=== PATIENT | male | born 1980 | race American Indian/Alaskan Native ===

== ENCOUNTER 2016-09-01 00:14 | Emergency (ER) | payer MEDICARE ==
[2016-09-01] MEDS ORDERED: TYLENOL #3 PO ONE (03:27)
--- NOTE | 2016-09-01 04:01 | Emergency Department Report ---
Head Injury w/o Laceration - HPI Chief Complaint: Fall Stated Complaint: FALL Time Seen by Provider: 09/01/16 03:29 Occurred When: Today Mechanism: Fall Location: Frontal Severity: mild (pain is 2 out of 10) Head Inj w/o Lac: Yes Headache (2/10 to frontal skull), Yes Swelling (frontal skull right), Yes Bruising (abrasion to frontal skull right and left), Yes Break in Skin (abrasions), No Loss of Consciousness, No Nausea, No Blurred Vision, No Altered Mental Status, No Focal Deficit, No Bleeding Other History: Patient reported that he tripped and slipped outside and fell and hit his forehead. Patient arrived by ambulance. He denies all call use. He said he had cuts to his forehead. Reports headache with Dilaudid 10 and abrasion sites. Denies any nausea or vomiting. Denies any loss of consciousness. Denies any fever or chills. Patient said the fall was accidental. Denies any loss of vision ED General PMH - Past Medical History General Medical History: no medical history Surgical History: no surgical history - Family History Significant Family History: no pertinent family hx - Social History Smoking Status: Current Every Day Smoker Alcohol Use: occasionally Drug Use: N (she brought to the hospital by EMS) ED Neuro ROS - Review of Systems Constitutional: no symptoms reported Eyes (ROS): no symptoms reported Ears, Nose, Mouth, Throat: no symptoms reported Respiratory: no symptoms reported Cardiology: no symptoms reported Gastrointestinal/Abdominal: no symptoms reported Genitourinary: no symptoms reported Musculoskeletal: no symptoms reported Skin: other (abrasions to forehead) Neurological: headache Endocrine: no symptoms reported Hematologic/Lymphatic: no symptoms reported All Other Systems: Reviewed and Negative Head Injury W/O Lac Exam - Exam General: Vital signs noted. No distress. Alert and acting appropriately. This is a 36-year-old male awake and alert and in no acute distress. Adult Head Front + Back: 1 - Abrasion 2 - Abrasion 3 - Abrasion Head: Yes Pupils are PERRL, Yes Abrasion (abrasions noted to frontal skull), No Hemotympanum, No Hematoma/Ecchymosis, No Epistaxis, No Stepoff/Deformity, No Laceration Chest, Abd, & Ext: Yes Clear Lung Sounds (to auscultation bilaterally, no rhonchi wheezes or rales normal work of breathing.), Yes Regular Heart Rhythm ( S1 and S2, regular rate and rhythm. Negative murmur), No Neck Pain (neck is supple, no C-spine tenderness. Full range of motion), No Chest Injury/Pain (no chest pain and no chest wall tenderness or deformity.), No Heart Murmur, No Abdominal Tenderness (off, nontender to palpate. Normal bowel sounds in all quadrants), No Back Tenderness (full range of motion, normal inspection, no vertebral or paraspinal tenderness), No Extremity Injury (no clubbing cyanosis or edema, +2 pulses in all extremities. Capillary refill is less than 3 seconds. Patient with good color, movement, sensation, temperature to all extremities. Full Range of Motion to all extremities. No neurovascular compromise.) Neuroligical (Head Inj W/O Lac: Yes Normal Speech, Yes Normal Gait, No Lethargy , No Disorientation, No Focal Numbness, No Focal Weakness Exam: Neurological: GCS of 15, speech is clear and fluid, no facial droop. Alert and oriented 3. Negative Romberg, normal gait. Negative pronator drift. No motor or sensory deficit. Head: Contusion noted to right forehead with multiple abrasion. No open fracture noted. Tender to palpate to forehead. Skin: Abrasions noted to forehead. ED Disposition Clinical Impression: Fall from ground level Nondisplaced right frontal skull fracture Qualifiers: Encounter type: initial encounter Fracture type: closed Qualified Code(s): S02.0XXA - Fracture of vault of skull, initial encounter for closed fracture Fracture of frontal sinus Qualifiers: Encounter type: initial encounter Fracture type: closed Qualified Code(s): S02.19XA - Other fracture of base of skull, initial encounter for closed fracture Closed head injury without loss of consciousness Qualifiers: Encounter type: initial encounter Qualified Code(s): S09.90XA - Unspecified injury of head, initial encounter Abrasion of forehead Qualifiers: Encounter type: initial encounter Qualified Code(s): S00.81XA - Abrasion of other part of head, initial encounter Post-traumatic headache Qualifiers: Headache chronicity pattern: acute headache Intractability: not intractable Qualified Code(s): G44.319 - Acute post-traumatic headache, not intractable Disposition: DC-01 TO HOME OR SELFCARE Is pt being admited?: No Does the pt Need Aspirin: No Condition: Stable ED Medical Decision Making - Lab Data Lab Results 09/01/16 Range/Units 04:15 Plasma/Serum Alcohol < 0.01 (0-0.07) gm% - Radiology Data Radiology results: report reviewed CT scan of the head revealed right paramedian the frontal skull fracture with right frontal scalp swelling.. Skull and scalp: There is a frontal scalp swelling. There is a nondisplaced fracture of the right side of the frontal bone and the right side of the frontal sinus. There is no depressed skull fracture. Ventricles and subarachnoid spaces is normal. Cerebellum and brain stem has no evidence of hemorrhage or acute infarction or mass. Cerebrum no evidence of hemorrhage, acute infarction or mass. Vasculature is normal CTscan of the cervical spine shows no acute fracture or subluxation - Medical Decision Making ED course: Brought to the emergency room by EMS after tripping and falling outdoors. Patient said that he tripped and fell and hit his head and he has bruising to his head and slight headache. Patient was given Tylenol in emergency room and CT scan of the head was done. This showed that patient had fracture to his frontal bone on the right side which is nondisplaced and right paraspinal frontals sinus fracture. This was discussed with patient and I told him that he will need to be transferred to [facility] to be evaluated and treated. I spoke with transfer center after speaking with Dr. Tovar and Dr Douglas and Dr. Gallardo [facility] accepted patient. Diagnostic and labs: Blood alcohol normal level CT scan of the head without contrast revealed nondisplaced fracture through the right side of the frontal bone and the right side of the frontal sinus. There is no depressed skull fracture. No intracranial hemorrhage or mass noted. No infarct noted. Review of previous visits. No previous visits to this hospital. Nexus criteria did not require any images of the neck but because patient has fall with headache CT scan of the head ordered and pending. Patient does not have any tenderness to palpate that is C-spine. Assessment: Frontal skull fracture, closed ,right frontal sinus fracture, posttraumatic headache, accidental fall, abrasion frontals skull Plan follow-up: Patient was given Ancef 1 g in emergency room emperically. Abrasions cleansed with normal saline and triple antibiotic ointment placed inside. Tetanus shot updated. She given Boostrix 0.5 mL IM in emergency room. He received Tylenol C Tylenol 3 one tablet in the emergency room for headache which relieved his headache. Patient is able to ambulate and he is neurologically intact. Report given to [facility] by death surveys coder in ER. Dr. Smith trauma neurosurgery accepted patient for further treatment and evaluation. I will bleed in EMS transport to [facility] and patient is updated on plan. - Differential Diagnosis ICH, skull fracture, EtOH abuse, CVA ED Course Vital Signs 09/01/16 09/01/16 00:39 06:31 Temperature 98.4 F 98.1 F Pulse Rate 99 H 69 Respiratory 20 16 Rate Blood Pressure 135/83 Blood Pressure 119/80 [Right] O2 Sat by Pulse 99 98 Oximetry - Reevaluation(s) Reevaluation #1: 09/01/16 00:45 Patient is stable distress. No changes in neurological status. Reevaluation #2: 09/01/16 03:00 In stable and no change in neurological status. Reevaluation #3: 09/01/16 05:33 Patient stable C scan of the head revealed patient with right frontal skull fracture and a right frontal sinus fracture. 09/01/16 07:33 09/01/16 07:38 Reevaluation #4: 09/01/16 06:34 [facility] accepted patient.. Dr. Coelho trauma neurosurgeon will see patient at [facility]. This was communicated with patient and is in agreement. He was given Tylenol 3 earlier this morning which relieved his headache. He has no change in his neurological status since initial exam. Patient abrasions were cleansed with normal saline and Neosporin ointment placed the sites. She given Boostrix and Ancef injection. Psychiatric Registered Nurse called report to the nurse. CT Scan of C-spine shows no acute fracture or subluxation. I collaborated with Dr. Ward on patient presentation and let them know that I spoke with Dr. Tovar. I also informed him of clinical findings of CT scan and plan to transfer patient to [facility]. Reevaluation #5: 09/01/16 07:40 Patient still waiting on transport. he is stable and in no acute distress. No change in neurological status - Consultations Consultation #1: 09/01/16 06:00 [facility] transfer center aware of patient being transported ;Dr Coelho accepted patient
[2016-09-01] MEDS ORDERED: TRIPLE ANTIBIOTIC TP ONE (04:02)
[2016-09-01] MEDS ORDERED: BOOSTRIX IM ONE (04:02)
--- NOTE | 2016-09-01 05:24 | Cat Scan Report ---
FINAL REPORT PROCEDURE: CT HEAD/BRAIN WO CON TECHNIQUE: Computerized tomography of the head was performed without contrast material. HISTORY: head injury with abrasion and dizziness COMPARISON: No prior studies are available for comparison. FINDINGS: Skull and scalp: There is frontal scalp swelling. There is a nondisplaced fracture through the right side of the frontal bone and the right side of the frontal sinus. There is no depressed skull fracture.. Paranasal sinuses: There is fluid in the frontal sinus and ethmoid air cells.. Ventricles and subarachnoid spaces: Normal. Cerebrum: No evidence of hemorrhage, acute infarction or mass . Cerebellum and brainstem: No evidence of hemorrhage, acute infarction or mass. Vasculature: Normal. Comments: None. IMPRESSION: Right paramedian the frontal skull fracture with right frontal scalp swelling. No or intracranial hemorrhage is identified. There is no edema, mass effect or midline shift. There fluid in the frontal and right anterior ethmoid air cells.
[2016-09-01] MEDS ORDERED: ANCEF IM ONE (06:01)
--- NOTE | 2016-09-01 07:24 | Cat Scan Report ---
FINAL REPORT EXAM: CT CERVICAL SPINE WO CON HISTORY: fall TECHNIQUE: A noncontrast CT of the cervical spine was performed. Coronal and sagittal reformatted images were obtained. PRIORS: None. FINDINGS: There is no evidence of acute fracture. Vertebral body heights and alignment are maintained. There is no evidence of significant spinal stenosis. IMPRESSION: There is no evidence of cervical spine fracture or subluxation.
[2016-09-01 09:35] VITALS: BP 130/77
== END 2016-09-01 09:05 | disposition other institution (70) ==
LOC: ED 00:14
DX: S02.0XXA Fracture of vault of skull, initial encounter for closed fracture (principal); S02.19XA Other fracture of base of skull, initial encounter for closed fracture; S09.90XA Unspecified injury of head, initial encounter; S00.81XA Abrasion of other part of head, initial encounter; G44.319 Acute post-traumatic headache, not intractable; Z91.013 Allergy to seafood; F17.200 Nicotine dependence, unspecified, uncomplicated; W01.198A Fall on same level from slipping, tripping and stumbling with subsequent striking against other object, initial encounter; Y93.89 Activity, other specified; Y92.89 Other specified places as the place of occurrence of the external cause; Y99.8 Other external cause status
CPT/HCPCS: 36415; 70450; 72125; 90471; 90715; 96372; 99285; G0480; J0690; 80320; A6250

== ENCOUNTER → 2017-05-06 01:53 | Emergency (ER) | payer MEDICARE | END | disposition left against medical advice (07) | LOC: ED 01:53 | DX: J00 Acute nasopharyngitis [common cold] (principal); Z53.21 Procedure and treatment not carried out due to patient leaving prior to being seen by health care provider ==